=== PATIENT | female | born 1995 | race Two or more races ===

== ENCOUNTER 2019-06-10 15:15 | Inpatient (IN) | payer OTHER ==
[~2019-06-10] VITALS: Ht 157.5 cm; Wt 3.2 kg
[2019-06-22] MEDS ORDERED: FOLIC ACID0.4 MG (03:19)
[2019-06-22] MEDS ORDERED: PRENATABS RX T1 EACH PO (03:20)
== END 2019-07-06 14:19 | disposition home or self-care (01) | DRG 788 ==
LOC: OB/GYN 15:15 → LDR 07-02 04:55 → O/R 07-02 04:55 → OB/GYN 07-02 18:19
PROVIDERS: ADMIT Obstetrics & Gynecology
PROC: 3E0P7VZ Introduction of Hormone into Female Reproductive, Via Natural or Artificial Opening (ICD-10-PCS; 2019-07-02)
PROC: 3E033VJ Introduction of Other Hormone into Peripheral Vein, Percutaneous Approach (ICD-10-PCS; 2019-07-02)
PROC: 4A1HXCZ Monitoring of Products of Conception, Cardiac Rate, External Approach (ICD-10-PCS; 2019-07-02)
PROC: 10D00Z1 Extraction of Products of Conception, Low, Open Approach (ICD-10-PCS; principal; 2019-07-02 15:00)
DX: O82 Encounter for cesarean delivery without indication (principal); O62.0 Primary inadequate contractions; Z3A.40 40 weeks gestation of pregnancy; Z37.0 Single live birth

== ENCOUNTER 2019-06-22 01:45 | Outpatient (CLI) | payer OTHER ==
[2019-06-22] MEDS ORDERED: FOLIC ACID0.4 MG (03:19)
[2019-06-22] MEDS ORDERED: PRENATABS RX T1 EACH PO (03:20)
== END 2019-06-22 07:56 | disposition home or self-care (01) ==
LOC: OBS/DEL 01:45
DX: O47.1 False labor at or after 37 completed weeks of gestation (principal)

== ENCOUNTER → 2019-06-24 | Outpatient (CLI) | payer OTHER ==
[~2019-06-24] MED LIST: FOLIC ACID0.4 MG; PRENATABS RX T1 EACH PO
== END | disposition home or self-care (01) ==
LOC: PRENATAL 15:00
DX: O36.8193 Decreased fetal movements, unspecified trimester, fetus 3 (principal); O26.843 Uterine size-date discrepancy, third trimester